=== PATIENT | male | born 1960 | race Caucasian/White ===

== ENCOUNTER → 2019-04-22 | Outpatient (CLI) | payer BC ==
[~2019-04-22] MED LIST: ACETAMINOPHEN325 M1 PO; AMLODIPINE BESYL5 M1 PO; ASPIRIN EC81 M1 PO; CENTRUM SILVER1 EAC2 PO; NITROQUICK0.4 MG SL; NORCO 5-325 TA1 EACH PO; PERCOCET 5-3251 EACH PO; ZOCOR40 MG; ZOFRAN ODT4 MG PO
== END ==
LOC: M.RAD 15:52
DX: M47.814 Spondylosis without myelopathy or radiculopathy, thoracic region (principal); R07.9 Chest pain, unspecified

== ENCOUNTER → 2020-12-08 | Outpatient (CLI) | payer BC | LOC: M.ULTRA 10:22 | PROVIDERS: ATTEND Internal Medicine | DX: N28.1 Cyst of kidney, acquired (principal) ==